=== PATIENT | female | born 1975 ===

== ENCOUNTER 2018-02-25 18:35 | Emergency (ER) | payer OTHER ==
[2018-02-25 18:42] VITALS: BP 154/95; PULSE 85; RESP 18; TEMP 98.2; O2SAT 99
--- NOTE | 2018-02-25 19:35 | ED PDOC ---
Lower Extremity Pain/Injury Time Seen by Provider: 02/25/18 18:56 Chief Complaint (Nursing): Lower Extremity Problem/Injury Chief Complaint (Provider): Lower Extremity Problem/Injury History Per: Patient History/Exam Limitations: no limitations Onset/Duration Of Symptoms: Days (x2 weeks) Current Symptoms Are (Timing): Still Present Additional Complaint(s): 42 year old female with no significant past medical history presents to the ED with right foot pain onset 2 weeks ago. Patient reports she dropped something on her foot, but cannot recall the object at this time. She thought the pain was getting better but it recently got worse. Patient is taking Motrin PM with minimal relief but has been keeping it elevated. At work, she has be on her feet a lot. She denies any other injury or medical complaint. PMD: Dr. Martinez Past Medical History Reviewed: Historical Data, Nursing Documentation, Vital Signs Vital Signs: Last Vital Signs Temp 98.2 F 02/25/18 18:39 Pulse 85 02/25/18 18:39 Resp 18 02/25/18 18:39 BP 154/95 H 02/25/18 18:39 Pulse Ox 99 02/25/18 18:39 - Medical History Other PMH: Membranous nephropathy - Surgical History Surgical History: No Surg Hx - Family History Family History: States: Unknown Family Hx - Home Medications Home Medications: Ambulatory Orders Medication Instructions Recorded traMADol [Ultram] 50 mg PO Q6H PRN #15 tab 02/25/18 - Allergies Allergies/Adverse Reactions: Allergies Allergy/AdvReac Type Severity Reaction Status Date / Time No Known Allergies Allergy Verified 02/25/18 18:39 Review of Systems ROS Statement: Except As Marked, All Systems Reviewed And Found Negative Musculoskeletal: Positive for: Foot Pain (right) Physical Exam - Reviewed Nursing Documentation Reviewed: Yes Vital Signs Reviewed: Yes - Physical Exam Appears: Positive for: Non-toxic, No Acute Distress Head Exam: Positive for: ATRAUMATIC Skin: Positive for: Normal Color, Warm, DRY Eye Exam: Positive for: Normal appearance Neck: Positive for: Normal Respiratory: Negative for: Accessory Muscle Use, Respiratory Distress Extremity: Positive for: Tenderness, Other (Ecchymosis, normal pulses). Negative for: Deformity Neurologic/Psych: Positive for: Alert - ECG O2 Sat by Pulse Oximetry: 99 (RA) Pulse Ox Interpretation: Normal Medical Decision Making Medical Decision Making: Time: 19:10 Initial Plan: --Right foot XR No acute fracture or dislocation seen on XR Time: 20:15 --Patient is medically cleared for discharge home. Advised patient to follow up with a freight breaker and gave prescription for pain medication. Scribe Attestation: Documented by Nelida Whatley, acting as a scribe for Lotus Glasgow PA-C. Provider Scribe Attestation: All medical record entries made by the Scribe were at my direction and personally dictated by me. I have reviewed the chart and agree that the record accurately reflects my personal performance of the history, physical exam, medical decision making, and the department course for this patient. I have also personally directed, reviewed, and agree with the discharge instructions and disposition. Disposition - Clinical Impression Clinical Impression: Foot injury - Patient ED Disposition Is Patient to be Admitted: No Counseled Patient/Family Regarding: Diagnosis, Need For Followup, Rx Given - Disposition Referrals: Podiatry Clinic [Outside] Disposition: Routine/Home Disposition Time: 20:15 Condition: Additional Instructions: Ice, elevation. Tramadol for severe pain. Prescriptions: traMADol [Ultram] 50 mg PO Q6H PRN #15 tab PRN Reason: Pain Instructions: Contusion (DC) Forms: [employer] ([place]e), [facility] ED School/Work Excuse
--- NOTE | 2018-02-26 09:27 | RAD ---
Date of service: 02/25/2018 PROCEDURE: Right Foot Radiographs. HISTORY: crush injury COMPARISON: None. FINDINGS: BONES: No acute fracture. JOINTS: Normal. SOFT TISSUES: Normal. OTHER FINDINGS: Small Achilles enthesophyte. Small inferior plantar calcaneal spur. IMPRESSION: No demonstrated fracture dislocation.
== END 2018-02-25 20:37 | disposition home or self-care (01) ==
LOC: H.ER 18:35
DX: S99.921A Unspecified injury of right foot, initial encounter (principal); W23.0XXA Caught, crushed, jammed, or pinched between moving objects, initial encounter; Y92.89 Other specified places as the place of occurrence of the external cause